=== PATIENT | male | born 1970 | race Caucasian/White ===

== ENCOUNTER 2017-09-06 12:43 | Emergency (ER) | payer SELFPAY ==
[~2017-09-06] VITALS: Ht 170.2 cm; Wt 69.0 kg
[~2017-09-06 12:43] MED LIST: CYCL-36 PO
[2017-09-06 12:46] VITALS: BP 118/65; PULSE 64; RESP 18; TEMP 97.7; O2SAT 100
[2017-09-06] MEDS ORDERED: ceFAZolin 2 GM PREMIX 50 ML IV ONE (13:00)
[2017-09-06] MEDS ORDERED: ONDANSETRON HCL 4 MG/2 ML VIAL IV PUSH ONE (13:00)
[2017-09-06] MEDS ORDERED: MORPHINE SULFATE 2 MG/ML INJ IV PUSH ONE (13:00)
[2017-09-06] MEDS ORDERED: SODIUM CHLOR 0.9% 1000 ML INJ 1,000 ML IV ONE (13:00)
[2017-09-06] MEDS ORDERED: LIDOCAINE 2%/EPINEPHrine 1:100,000 20ML MDV NERV BLOCK ONE (13:00)
[2017-09-06] MEDS ORDERED: KETOROLAC TROMETHAMINE 30 MG/ML (IVP) VIAL IVP ONE (13:00)
[2017-09-06] MEDS ORDERED: SODIUM CHLORIDE 0.9% FLUSH 10 ML FLUSH IVF PRN (13:00)
[2017-09-06] MEDS ORDERED: TETANUS/DIPHTHERIA TOXOID ADULT 0.5 ML VIAL IM ONE (13:00)
--- NOTE | 2017-09-06 13:03 | PD ---
HPI Chief Complaint: Laceration/Skin Injury Time Seen by Provider: 12:49 Travel History International Travel<30 days: No Contact w/Intl Traveler<30days: No Traveled to known affect area: No History of Present Illness HPI 47-year-old male presents to emergency department via EMS status post deep laceration to the left lateral anterior lower leg, from a seat trimmer. 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 Patient denies distal numbness, tingling, or weakness. Patient did get orthostatic from the site of blood, but has regained better blood pressure with normal saline bolus via EMS. Patient states pain is 9 out of 10. Bleeding is being controlled by pressure dressing applied by EMS. Patient has no known drug allergies. Patient 's tetanus is greater than 5 years. Patient has no other injury. PFSH Past Medical History Medical History: Denies Significant Hx Tetanus Vaccination: > 5 Years Influenza Vaccination: No Past Surgical History Surgical History: No Previous Surgery Social History Alcohol Use: Yes (2-3 GLASSES WINE/NIGHT) Tobacco Use: No Substance Use: No Allergies-Medications (Allergen,Severity, Reaction): Coded Allergies: No Known Allergies (Unverified Allergy, Unknown, 09/06/17) Reported Meds & Prescriptions Reported Meds & Active Scripts Active Tramadol (Tramadol HCl) 50 Mg Tab 50 Mg PO Q6H PRN Ibuprofen 600 Mg Tab 600 Mg PO Q6H PRN Keflex (Cephalexin) 500 Mg Capsule 500 Mg PO Q8H 7 Days Review of Systems Except as stated in HPI: all other systems reviewed are Neg General / Constitutional: No: Fever Eyes: No: Visual changes HENT: No: Headaches Cardiovascular: No: Chest Pain or Discomfort Respiratory: No: Shortness of Breath Gastrointestinal: No: Abdominal Pain Genitourinary: No: Dysuria Musculoskeletal: No: Pain Skin: Positive Lesions (six-inch deep laceration to the left ear lateral ayala) , No Rash Neurologic: No: Weakness Psychiatric: No: Depression Endocrine: No: Polydipsia Hematologic/Lymphatic: No: Easy Bruising Physical Exam Narrative GENERAL: Patient is in mild to moderate distress. SKIN: Warm and dry. Normal color. Normal turgor. There is a linear deep 6 cm laceration to the left anterior lateral ayala with involvement of the anterior tibialis muscle. HEAD: Atraumatic. Normocephalic. EYES: Pupils equal and round. No scleral icterus. No injection or drainage. ENT: No nasal bleeding or discharge. Mucous membranes pink and moist. Pharynx is clear. Airway is patent. NECK: Trachea midline. Supple and nontender. CARDIOVASCULAR: Regular rate and rhythm. RESPIRATORY: No accessory muscle use. Clear to auscultation. Breath sounds equal bilaterally. GASTROINTESTINAL: Abdomen soft, non-tender, nondistended. Hepatic and splenic margins not palpable. MUSCULOSKELETAL: Extremities without clubbing, cyanosis, or edema. No obvious deformities. Range of motion is intact. Capillary refill is brisk. NEUROLOGICAL: Awake and alert. No obvious cranial nerve deficits. Motor grossly within normal limits. Five out of 5 muscle strength in the arms and legs. Normal speech. PSYCHIATRIC: Appropriate mood and affect; insight and judgment normal. Data Data Last Documented VS Vital Signs Date Time Temp Pulse Resp B/P (MAP) Pulse Ox O2 Delivery O2 Flow Rate FiO2 09/06/17 12:46 97.7 64 18 118/65 (82) 100 Orders Orders Ketorolac Inj (Toradol Inj) (09/06/17 13:00) Sodium Chloride 0.9% Flush (Ns Flush) (09/06/17 13:00) Tetanus/Diphtheria Tox Adult (Tetanus/Di (09/06/17 13:00) Ondansetron Inj (Zofran Inj) (09/06/17 13:00) Morphine Inj (Morphine Inj) (09/06/17 13:00) Cefazolin 2 Gm Premix (Ancef 2 Gm Premix (09/06/17 13:00) Sodium Chlor 0.9% 1000 Ml Inj (Ns 1000 M (09/06/17 13:00) Lidocai-Epi 2%-1:100,000 Inj (Xylocaine- (09/06/17 13:00) Crutches (09/06/17 14:10) Wound Care (09/06/17 14:10) Ed Discharge Order (09/06/17 14:10) MDM Medical Decision Making Medical Screen Exam Complete: Yes Emergency Medical Condition: Yes Differential Diagnosis Left ayala laceration. Need for wound closure. Need for tetanus. Narrative Course Patient is medically stable at time of exam. IV access is maintained and patient is given 2 g Ancef IV, 30 mg Toradol IV, 4 mg Zofran IV, and 2 mg morphine IV. Laceration is repaired. Please see procedure note. Pressure dressing is placed and wound instructions reviewed with the patient. Patient will be continued on Keflex 500 mg 3 times a day 7 days. Patient is given ibuprofen 600 mg 4 times a day. Patient is given tramadol 50 mg one every 6 hours when necessary pain #20. Patient is to follow-up in 3 days for wound check. Patient should follow-up sooner with any worrisome symptoms. Sutures should remain in place for 10-14 days. Procedures Procedure Narrative LACERATION LOCATION: Left anterior lateral lower leg LENGTH: 7 cm NUMBER OF STITCHES/VINAY: 7 interrupted internal horizontal mattress, 4 interrupted vertical mattress, 13 interrupted horizontal mattress REPAIR: The area of the laceration was prepped with Betadine and sterilely draped. The laceration was infiltrated with a total of 8 mL 2% lidocaine with epi injected. The wound was copiously irrigated and explored without evidence of foreign body, tendon injury or neurovascular injury. The wound was closed using 4-0 Vicryl, 3-0 Prolene, and 5-0 Prolene.. This was a double layer repair. A sterile dressing was applied. The patient was advised to keep the dressing clean and dry. Patient tolerated the procedure well. Diagnosis Primary Impression: Laceration of left lower leg without complication Qualified Codes: S81.812A - Laceration without foreign body, left lower leg, initial encounter Patient Instructions: Care For Your Stitches (DC), Crutch Instructions (ED), General Instructions Additional Instructions: Pressure dressing is placed and wound instructions reviewed with the patient. Patient will be continued on Keflex 500 mg 3 times a day 7 days. Patient is given ibuprofen 600 mg 4 times a day. Patient is given tramadol 50 mg one every 6 hours when necessary pain #20. Patient is to follow-up in 3 days for wound check. Patient is recommended to use crutches with nonweightbearing for the next 3 days. Patient should follow-up sooner with any worrisome symptoms. Sutures should remain in place for 10-14 days. Med/Other Pt SpecificInfo: Prescription(s) given, Wound Care Scripts Tramadol (Tramadol) 50 Mg Tab 50 MG PO Q6H Y for PAIN, #20 TAB 0 Refills Prov: Shantanu Cobian MD 09/06/17 Ibuprofen (Ibuprofen) 600 Mg Tab 600 MG PO Q6H Y for Pain/Inflammation, #40 TAB 0 Refills Prov: Shantanu Cobian MD 09/06/17 Cephalexin (Keflex) 500 Mg Capsule 500 MG PO Q8H for Infection for 7 Days, #21 CAP 0 Refills Prov: Shantanu Cobian MD 09/06/17 Disposition: 01 DISCHARGE HOME Condition: Stable Waldemar Mata Sep 06, 2017 13:03
[2017-09-06] MEDS ORDERED: CEPH-460 PO (14:09)
[2017-09-06] MEDS ORDERED: TRAM50TA PO (14:09)
[2017-09-06] MEDS ORDERED: IBUP-232 PO (14:09)
== END 2017-09-06 14:26 | disposition home or self-care (01) ==
LOC: PHEFT 12:43
DX: S81.812A Laceration without foreign body, left lower leg, initial encounter (principal); W29.3XXA Contact with powered garden and outdoor hand tools and machinery, initial encounter; Y93.H2 Activity, gardening and landscaping; Y99.0 Civilian activity done for income or pay; Z23 Encounter for immunization
CPT/HCPCS: 12032; 90471; 90714; 96361; 96365; 96375; 99284; E0113; J0690; J1885; J2270; J2405; J7030

== ENCOUNTER 2017-09-09 12:02 | Emergency (ER) | payer SELFPAY ==
[~2017-09-09 12:02] MED LIST changes: +CEPH-460 PO; -CYCL-36 PO; +IBUP-232 PO; +TRAM50TA PO
[2017-09-09 12:03] VITALS: BP 140/70; PULSE 70; RESP 16; TEMP 98.2; O2SAT 98
--- NOTE | 2017-09-09 12:32 | PD ---
HPI Chief Complaint: Laceration/Skin Injury Time Seen by Provider: 12:30 Travel History International Travel<30 days: No Contact w/Intl Traveler<30days: No Traveled to known affect area: No History of Present Illness HPI 47-year-old male here for recheck recent deep laceration to the left lateral ayala. Patient is currently taking his antibiotics and ibuprofen. He states no significant Complaints. Pain is 7 out of 10. Patient has kept the area clean and dry and original dressing is in place. No known drug allergies. PFSH Social History Alcohol Use: Yes (2-3 GLASSES WINE/NIGHT) Tobacco Use: No Substance Use: No Allergies-Medications (Allergen,Severity, Reaction): Coded Allergies: No Known Allergies (Unverified Allergy, Unknown, 09/06/17) Reported Meds & Prescriptions Reported Meds & Active Scripts Active Tramadol (Tramadol HCl) 50 Mg Tab 50 Mg PO Q6H PRN Ibuprofen 600 Mg Tab 600 Mg PO Q6H PRN Keflex (Cephalexin) 500 Mg Capsule 500 Mg PO Q8H 7 Days Review of Systems Except as stated in HPI: all other systems reviewed are Neg General / Constitutional: No: Fever Eyes: No: Visual changes HENT: No: Headaches Cardiovascular: No: Chest Pain or Discomfort Respiratory: No: Shortness of Breath Gastrointestinal: No: Abdominal Pain Genitourinary: No: Dysuria Musculoskeletal: No: Pain Skin: No Rash Neurologic: No: Weakness Psychiatric: No: Depression Endocrine: No: Polydipsia Hematologic/Lymphatic: No: Easy Bruising Physical Exam Narrative GENERAL: Patient is in no acute distress. SKIN: Warm and dry. Normal color. Normal turgor. Wound site is not significantly tender. No significant swelling. Appears to be well healing with no signs of wound dehiscence, or cellulitis. HEAD: Atraumatic. Normocephalic. EYES: Pupils equal and round. No scleral icterus. No injection or drainage. ENT: No nasal bleeding or discharge. Mucous membranes pink and moist. Pharynx is clear. NECK: Trachea midline. Supple CARDIOVASCULAR: Regular rate and rhythm. RESPIRATORY: No accessory muscle use. MUSCULOSKELETAL: Extremities without clubbing, cyanosis, or edema. No obvious deformities. Range of motion is intact. NEUROLOGICAL: Awake and alert. No obvious cranial nerve deficits. Motor grossly within normal limits. Five out of 5 muscle strength in the arms and legs. Normal speech. PSYCHIATRIC: Appropriate mood and affect; insight and judgment normal. Data Data Last Documented VS Vital Signs Date Time Temp Pulse Resp B/P (MAP) Pulse Ox O2 Delivery O2 Flow Rate FiO2 09/09/17 12:03 98.2 70 16 140/70 (93) 98 MDM Medical Decision Making Medical Screen Exam Complete: Yes Emergency Medical Condition: Yes Differential Diagnosis Deep laceration left ayala. Wound check. Dressing change. Narrative Course Dressing is removed, wound inspected, and redressed. Patient to continue meds as previously prescribed. Sutures should remain for a full 10-14 days. Patient to follow-up for that in 10-14 days. Patient follow-up sooner as needed. Diagnosis Primary Impression: Encounter for wound re-check Additional Impression: Laceration of left lower leg without complication Qualified Codes: S81.812D - Laceration without foreign body, left lower leg, subsequent encounter Patient Instructions: General Instructions Additional Instructions: Patient to continue meds as previously prescribed. Sutures should remain for a full 10-14 days. Patient to follow-up for that in 10-14 days. Patient follow-up sooner as needed. Med/Other Pt SpecificInfo: Wound Care Disposition: 01 DISCHARGE HOME Condition: Stable Waldemar Mata Sep 09, 2017 12:32
== END 2017-09-09 13:01 | disposition home or self-care (01) ==
LOC: NEPD 12:02
DX: S81.812D Laceration without foreign body, left lower leg, subsequent encounter (principal); X58.XXXD Exposure to other specified factors, subsequent encounter
CPT/HCPCS: 99281